=== PATIENT | male | born 1965 | race Hispanic/Latino ===

== ENCOUNTER 2023-06-22 08:39 | Emergency (ER) | payer BC ==
[~2023-06-22] VITALS: Ht 172.7 cm; Wt 99.8 kg
[2023-06-22 08:54] VITALS: BP 155/95; PULSE 66; RESP 18; O2SAT 99
== END 2023-06-22 10:42 | disposition home or self-care (01) ==
LOC: EDH 08:39
DX: H11.32 Conjunctival hemorrhage, left eye (principal); I10 Essential (primary) hypertension
CPT/HCPCS: 99281